=== PATIENT | female | born 1960 | race Caucasian/White ===

== ENCOUNTER 2019-06-10 13:10 | Inpatient (IN) | payer OTHER ==
[2019-06-10 13:37] LABS: BASOPHILS % (AUTO) 0.4 %; EOSINOPHILS % (AUTO) 0.3 %; HGB - HEMOGLOBIN 14.1 g/dL (12.0-16.0); LYMPHOCYTES # (AUTO) 1.5 10^3/uL (1.5-3.5); LYMPHOCYTES % (AUTO) 14.2 %; MEAN CORPUSCULAR HEMOGLOBIN 28.2 pg (27.0-31.0); MEAN CORPUSCULAR HGB CONC 32.7 g/dL (32.0-36.0); MEAN CORPUSCULAR VOLUME 86.2 fL (81.0-99.0); MEAN PLATELET VOLUME 10.7 fL (7.9-10.8); MONOCYTES # (AUTO) 0.6 10^3/uL (0.0-1.0); MONOCYTES % (AUTO) 5.8 %; NEUTROPHILS # (AUTO) 8.5 10^3/uL (1.5-6.6); NEUTROPHILS % (AUTO) 78.9 %; PLT - PLATELET COUNT 213 10^3/uL (130-450); RED CELL DISTRIBUTION WIDTH 13.4 % (12.0-15.0); WHITE BLOOD COUNT 10.7 x10^3/uL (4.8-10.8)
[2019-06-10 13:52] LABS: ALBUMIN 4.6 g/dL (3.2-5.5); ALBUMIN/GLOBULIN RATIO 1.3 (1.0-2.2); BILIRUBIN,TOTAL 0.8 mg/dL (0.2-1.0); CALCIUM 9.8 mg/dL (8.5-10.3); CREATININE 0.9 mg/dL (0.4-1.0); TOTAL PROTEIN 8.1 g/dL (6.7-8.2)
--- NOTE | 2019-06-10 16:26 | ED Physician Documentation ---
PD HPI ABD PAIN - Stated complaint Stated Complaint: ABD PX - Chief complaint Chief Complaint: Abd Pain - History obtained from History obtained from: Patient PD PAST MEDICAL HISTORY - Allergies Allergies/Adverse Reactions: Allergies Allergy/AdvReac Type Severity Reaction Status Date / Time No Known Drug Allergies Allergy Verified 06/10/19 13:12 Results - Vitals Vitals: Vital Signs - 24 hr 06/10/19 13:12 Temperature 36.5 C Heart Rate 63 Respiratory 16 Rate Blood Pressure 145/70 H O2 Saturation 97 Oxygen O2 Source Room air - Labs Labs: Laboratory Tests 06/10/19 06/10/19 13:33 13:33 WBC 10.7 RBC 5.00 Hgb 14.1 Hct 43.1 MCV 86.2 MCH 28.2 MCHC 32.7 RDW 13.4 Plt Count 213 MPV 10.7 Neut # (Auto) 8.5 H Lymph # (Auto) 1.5 [place] # (Auto) 0.6 Eos # (Auto) 0.0 Baso # (Auto) 0.0 Absolute Nucleated RBC 0.00 Nucleated RBC % 0.0 Sodium 135 Potassium 3.6 Chloride 99 L Carbon Dioxide 24 Anion Gap 12.0 BUN 14 Creatinine 0.9 Estimated GFR (MDRD) 64 L Glucose 117 H Calcium 9.8 Total Bilirubin 0.8 AST 21 ALT 23 Alkaline Phosphatase 57 Total Protein 8.1 Albumin 4.6 Globulin 3.5 Albumin/Globulin Ratio 1.3 Lipase 25
[2019-06-10] MEDS ORDERED: LIDOCAINE VISCOUS 2% 15 ML UDC MM STA (16:35)
[2019-06-10] MEDS ORDERED: MAG HYDROX/AL HYDROX/SIMETH 30 ML UDC PO STA (16:35)
--- NOTE | 2019-06-10 16:37 | ED Physician Documentation ---
PD HPI ABD PAIN - Stated complaint Stated Complaint: ABD PX - Chief complaint Chief Complaint: Abd Pain - History obtained from History obtained from: Patient - History of Present Illness Timing - onset: Other (The last couple of months she has had episodic upper abdominal pain that is at times severe usually affecting her at night. She has had 4 episodes in total, the first 1 was in March and the second 1 was in March and the third was in mid April. Each of those episodes lasted about 6 hours and went away. She is had the current episode now going on 48 hours. It epigastric pain that is nonradiating. It is worse after eating. She is nauseous without vomiting. No fevers. She has had a hysterectomy and oophorectomy but no other abdominal surgeries.) Review of Systems Ten Systems: 10 systems reviewed and negative Constitutional: denies: Fever, Chills Nose: denies: Rhinorrhea / runny nose Cardiac: denies: Chest pain / pressure, Palpitations Respiratory: denies: Dyspnea, Cough PD PAST MEDICAL HISTORY - Allergies Allergies/Adverse Reactions: Allergies Allergy/AdvReac Type Severity Reaction Status Date / Time No Known Drug Allergies Allergy Verified 06/10/19 13:12 PD ED PE NORMAL - Vitals Vital signs reviewed: Yes - General General: Alert and oriented X 3, No acute distress - HEENT HEENT: Atraumatic, PERRL, EOMI - Neck Neck: Supple, no meningeal sign, No bony TTP - Cardiac Cardiac: RRR, No murmur - Respiratory Respiratory: No respiratory distress, Clear bilaterally - Abdomen Abdomen: Normal bowel sounds, Soft, Non tender - Back Back: No CVA TTP, No spinal TTP - Derm Derm: Normal color, Warm and dry - Extremities Extremities: No edema, No calf tenderness / cord - Neuro Neuro: Alert and oriented X 3, Normal speech Results - Vitals Vitals: Vital Signs - 24 hr 06/10/19 06/10/19 06/10/19 13:12 16:38 17:27 Temperature 36.5 C Heart Rate 63 72 70 Respiratory 16 16 16 Rate Blood Pressure 145/70 H 135/87 H O2 Saturation 97 100 99 06/10/19 06/10/19 06/10/19 17:31 18:11 19:24 Temperature Heart Rate 72 70 Respiratory 17 18 Rate Blood Pressure 125/71 141/72 H 122/75 O2 Saturation 100 98 06/10/19 06/10/19 06/10/19 20:07 20:11 20:44 Temperature 37.2 C Heart Rate 75 75 73 Respiratory 17 19 16 Rate Blood Pressure 117/74 112/65 O2 Saturation 95 98 97 06/10/19 21:38 Temperature Heart Rate 68 Respiratory 16 Rate Blood Pressure 109/64 O2 Saturation 95 Oxygen O2 Source Room air - EKG (time done) 1638 Rate: Rate (enter#) (66) Rhythm: NSR [place]: Normal Intervals: Normal ID QRS: Normal Ischemia: Normal ST segments Computer interpretation: Agree with computer - Labs Labs: Laboratory Tests 06/10/19 06/10/19 06/10/19 13:33 13:33 13:33 WBC 10.7 RBC 5.00 Hgb 14.1 Hct 43.1 MCV 86.2 MCH 28.2 MCHC 32.7 RDW 13.4 Plt Count 213 MPV 10.7 Neut # (Auto) 8.5 H Lymph # (Auto) 1.5 [place] # (Auto) 0.6 Eos # (Auto) 0.0 Baso # (Auto) 0.0 Absolute Nucleated RBC 0.00 Nucleated RBC % 0.0 Sodium 135 Potassium 3.6 Chloride 99 L Carbon Dioxide 24 Anion Gap 12.0 BUN 14 Creatinine 0.9 Estimated GFR (MDRD) 64 L Glucose 117 H Calcium 9.8 Total Bilirubin 0.8 AST 21 ALT 23 Alkaline Phosphatase 57 Troponin I High Sens < 2.3 L Total Protein 8.1 Albumin 4.6 Globulin 3.5 Albumin/Globulin Ratio 1.3 Lipase 25 Urine Color Urine Clarity Urine pH Ur Specific [place] Urine Protein Urine Glucose (UA) Urine Ketones Urine Occult Blood Urine Nitrite Urine Bilirubin Urine Urobilinogen Ur Leukocyte Esterase Ur Microscopic Review Urine Culture Comments 06/10/19 19:05 WBC RBC Hgb Hct MCV MCH MCHC RDW Plt Count MPV Neut # (Auto) Lymph # (Auto) [place] # (Auto) Eos # (Auto) Baso # (Auto) Absolute Nucleated RBC Nucleated RBC % Sodium Potassium Chloride Carbon Dioxide Anion Gap BUN Creatinine Estimated GFR (MDRD) Glucose Calcium Total Bilirubin AST ALT Alkaline Phosphatase Troponin I High Sens Total Protein Albumin Globulin Albumin/Globulin Ratio Lipase Urine Color YELLOW Urine Clarity CLEAR Urine pH 6.0 Ur Specific [place] >=1.030 H Urine Protein TRACE Urine Glucose (UA) NEGATIVE Urine Ketones >=80 H Urine Occult Blood TRACE-INTA Urine Nitrite NEGATIVE Urine Bilirubin NEGATIVE Urine Urobilinogen 0.2 (NORMAL) Ur Leukocyte Esterase NEGATIVE Ur Microscopic Review NOT INDICATED Urine Culture Comments NOT INDICATED - Rads (name of study) RUQ sono Radiology: EMP read contemporaneously (impacted stone, thick wall cw cholecystit is, no evidence of obstruciton or CBD dilation) PD MEDICAL DECISION MAKING - ED course ED course: 58yo woman not too TTP but hx c/w worsening GB sx and sono c/w obstruction, no sono or lab evidence of obstruciton. Spoke with Dr Arriola for admit, (not sure of timing, as EMR was down). Zosyn given. Departure - Departure Disposition: ED Place in Observation Clinical Impression: Cholecystitis Condition: Fair
[2019-06-10] MEDS ORDERED: HYDROmorphone 1 MG/ML CARPUJECT IVP STA (17:16)
[2019-06-10] MEDS ORDERED: KETOROLAC 30 MG/ML VIAL IVP STA (18:28)
--- NOTE | 2019-06-10 19:05 | Ultrasound Report ---
Reason: epigastric pain Procedure Date: 06/10/2019 Accession Number: [id number] / [id number] Procedure: US - Abdomen Limited CPT Code: Final Report FULL RESULT: EXAM: ABDOMEN ULTRASOUND LIMITED, RUQ EXAM DATE: 06/10/2019 06:29 PM. CLINICAL HISTORY: Epigastric pain. COMPARISON: None. TECHNIQUE: Real-time scanning was performed with static images obtained. FINDINGS: Liver: The liver parenchyma is echogenic. There is a relatively hypoechoic area in the liver near the gallbladder fossa consistent with focal fatty sparing. 13.9 cm. Main portal vein flow: Hepatopetal. Gallbladder: There are multiple gallstones in the gallbladder. The gallbladder wall appears thickened up to 6 mm. Positive ultrasound Vigil's sign. Biliary System: CBD measures 4 mm. No intrahepatic or extrahepatic ductal dilatation. Other: No right upper quadrant free fluid. Right kidney measures 8.9 cm in length without hydronephrosis. IMPRESSION: 1. Gallstones with ultrasound features of acute cholecystitis including a positive ultrasound Vigil's sign and gallbladder wall thickening. 2. No biliary dilatation. Common bile duct measures 4 mm in diameter. 3. Steatosis of the liver with focal fatty sparing. RADIA
[2019-06-10] MEDS ORDERED: PIPERACILLIN/TAZOBACTAM 3.375 GM in SODIUM CHLORIDE 0.9% MINIBAG 100 ML IV STA (19:09)
[2019-06-10 19:21] LABS: BILIRUBIN,URINE NEGATIVE (NEGATIVE); GLUCOSE, URINE (UA) NEGATIVE (NEGATIVE); KETONES,URINE (UA) >=80 mg/dL (NEGATIVE); LEUKOCYTE ESTERASE, URINE NEGATIVE (NEGATIVE); NITRITE,URINE NEGATIVE (NEGATIVE); OCCULT BLOOD,URINE TRACE-INTA (NEGATIVE); PROTEIN,URINE TRACE mg/dL (NEGATIVE); UROBILINOGEN,URINE 0.2 (NORMAL) E.U./dL (NORMAL)
[2019-06-10 19:25] LABS: CLARITY,URINE CLEAR (CLEAR)
[2019-06-10] MEDS ORDERED: ACETAMINOPHEN 1,000 MG/100 ML 100 ML IV STA (20:29)
[2019-06-10] MEDS: DEXTROSE 5%-LACTATED RINGERS 1,000 ML IV SCH (20:55)
[2019-06-10] MEDS ORDERED: ONDANSETRON 4 MG/2 ML VIAL IVP PRN (21:59)
[2019-06-10] MEDS ORDERED: ACETAMINOPHEN 1,000 MG/100 ML 100 ML IV PRN (22:06)
[2019-06-11] MEDS: PIPERACILLIN/TAZOBACTAM 3.375 GM in SODIUM CHLORIDE 0.9% MINIBAG 100 ML IV SCH ×4 (01:16→18:44)
[2019-06-11] MEDS: SODIUM CHLORIDE FLUSH 0.9% 10 ML SYRINGE IVP SCH ×3 (01:16→17:08)
[2019-06-11] MEDS: DEXTROSE 5%-0.45% NACL 1,000 ML IV SCH ×2 (01:16→07:51)
[2019-06-11] MEDS: DEXTROSE 5%-LACTATED RINGERS 1,000 ML IV SCH (07:52)
[2019-06-11] MEDS ORDERED: LACTATED RINGERS 1,000 ML IV SCH ×2 (10:00→15:51)
--- NOTE | 2019-06-11 12:41 | ANESTHESIA ---
Pre-Anesthesia VS, & Labs - Diagnosis cholecystitis - Procedure Laparoscopic cholecystectomy Vital Signs: Temp Pulse Resp BP Pulse Ox 36.8 C 66 16 119/62 100 06/11/19 07:32 06/11/19 07:32 06/11/19 07:32 06/11/19 07:32 06/11/19 07:32 Height 5 ft Weight (kg) 83 kg Body Mass Index 35.7 - NPO >8 hours - Is Patient ?: No - Lab Results Current Lab Results: Laboratory Tests 06/10/19 13:33: Troponin I High Sens < 2.3 L 06/10/19 13:33: Sodium 135, Potassium 3.6, Chloride 99 L, Carbon Dioxide 24, Anion Gap 12.0, BUN 14, Creatinine 0.9, Estimated GFR (MDRD) 64 L, Glucose 117 H , Calcium 9.8, Total Bilirubin 0.8, AST 21, ALT 23, Alkaline Phosphatase 57, Total Protein 8.1, Albumin 4.6, Globulin 3.5, Albumin/Globulin Ratio 1.3, Lipase 25 06/10/19 13:33: WBC 10.7, RBC 5.00, Hgb 14.1, Hct 43.1, MCV 86.2, MCH 28.2, MCHC 32.7, RDW 13.4, Plt Count 213, MPV 10.7, Neut # (Auto) 8.5 H, Lymph # (Auto) 1.5, [place] # (Auto) 0.6, Eos # (Auto) 0.0, Baso # (Auto) 0.0, Absolute Nucleated RBC 0.00, Nucleated RBC % 0.0 Fish Bones: 06/10/19 13:33 06/10/19 13:33 Home Medications and Allergies Active Medications Hydromorphone HCl (Dilaudid Inj Syringe) 0.5 mg IVP Q30M PRN PRN Reason: Breakthrough Pain Acetaminophen (Ofirmev) 100 mls @ 400 mls/hr IV Q6HR PRN PRN Reason: PAIN Last Infusion: 06/11/19 08:10 Dose: Infused Piperacillin Sod/Tazobactam (Sod 3.375 gm/ Sodium Chloride) 100 mls @ 200 mls/hr IV Q6H MICAH Last Infusion: 06/11/19 09:22 Dose: Infused Lactated Ringer's (Lr) 1,000 mls @ 100 mls/hr IV .Q10H [facility] Last Admin: 06/11/19 10:59 Dose: 100 mls/hr Ondansetron HCl (Zofran Inj) 4 mg IVP Q6HR PRN PRN Reason: Nausea / Vomiting Sodium Chloride (Normal Saline Flush 0.9%) 10 ml IVP PRN PRN PRN Reason: NEEDED PER PROVIDER ORDERS Sodium Chloride (Normal Saline Flush 0.9%) 10 ml IVP 0100,0900,1700 [facility] Last Admin: 06/11/19 10:55 Dose: Not Given Allergies/Adverse Reactions: Allergies Allergy/AdvReac Type Severity Reaction Status Date / Time No Known Drug Allergies Allergy Verified 06/10/19 13:12 Anes History & Medical History - Anesthetic History Anesthesia Complications: reports: No previous complications - Medical History Cardiovascular: reports: None Pulmonary: reports: None Gastrointestinal: reports: GERD, Cholelithiasis Urinary: reports: None Neuro: reports: None Musculoskeletal: reports: None Endocrine/Autoimmune: reports: None Blood Disorders: reports: None Skin: reports: Eczema Smoking Status: Never smoker Other Past Medical History: fibroids, ovarian cysts - Surgical History Eyes Ears Nose Throat (EENT): Other Gynecologic: Hysterectomy Exam General: Alert Dental: WNL Mouth Opening: Greater than 4 Fingerbreadths Mallampati classification: I Thyromental Distance: greater than 6 cm Respiratory: Lungs clear Cardiovascular: Regular rate, Normal S1, Normal S2 Plan Anesthesia Type: General Consent for Procedure(s) Verified and Reviewed: Yes Code Status: Attempt Resuscitation ASA classification: 2-Mild systemic disease Is this case an emergency?: Yes
[2019-06-11] MEDS ORDERED: PROPOFOL 200 MG/20 ML VIAL IVP ONE (13:12)
[2019-06-11] MEDS ORDERED: DEXAMETHASONE 4 MG/ML VIAL IVP ONE (13:12)
[2019-06-11] MEDS ORDERED: KETOROLAC 30 MG/ML VIAL IVP ONE (13:12)
[2019-06-11] MEDS ORDERED: ROCURONIUM 50 MG/5 ML VIAL IVP ONE (13:12)
[2019-06-11] MEDS ORDERED: LIDOCAINE-MPF 2% 5 ML VIAL IM ONE (13:12)
[2019-06-11] MEDS ORDERED: fentaNYL 100 MCG/2 ML VIAL IVP ONE (13:12)
[2019-06-11] MEDS ORDERED: MIDAZOLAM 2 MG/2 ML VIAL IVP ONE (13:12)
[2019-06-11] MEDS ORDERED: ACETAMINOPHEN 1,000 MG/100 ML 100 ML IV ONE (13:12)
[2019-06-11] MEDS ORDERED: ONDANSETRON 4 MG/2 ML VIAL IVP ONE (13:12)
[2019-06-11] MEDS ORDERED: LACTATED RINGERS 1,000 ML IV ONE ×3 (13:12→15:59)
[2019-06-11] MEDS ORDERED: LIDOCAINE 1%-EPI 1:100000 30 ML MDV SUBQ ONE ×2 (13:43→15:00)
[2019-06-11] MEDS ORDERED: fentaNYL 100 MCG/2 ML VIAL ONE (15:38)
[2019-06-11] MEDS ORDERED: HYDROmorphone 0.5 MG/0.5 ML SYRINGE ONE (15:39)
[2019-06-11] MEDS: HYDROmorphone 0.5 MG/0.5 ML SYRINGE IVP PRN ×5 (15:40→21:46)
--- NOTE | 2019-06-11 15:40 | CONSULTATION NOTE ---
Referring Provider Name of Referring Provider:: Dr. Rivera Consult Date: 06/11/19 Chief Complaint - Chief Complaint Chief Complaint: abd pain History of Present Illness - Admitted From Admitted From:: ER - History Obtained From Records Reviewed: yes History obtained from: pt, Exam Limitations: none - History of Present Illness HPI Comment/Other: 58 yo female with 72 hour hx of severe constant steady nonradiating epigastric pain, N/V without fever/chills, jaundice, change in bowel habits, melena, hematochezia. She reports 3-4 milder simliar episodes over the past several months lasting 6-12 hours and associated with low grade fever. She reports a 30# wt loss over the past 6 months since starting a new diet. FH gallbladder disease in mother. Hx frequent heartburn relieved with antacids, no dysphagia, no hx PUD, current sx unimproved with antacids. No hx food intolerance; neg FH GI tumors. Evaluation in the ER included nl CBC, LFTs, lipase and abd US notable for multiple stones in gallbladder, thickened gallbladder wall, nl bile ducts. Surgical consultation was requested. She was admitted last night and started on Zosyn, kept NPO, with analgesics. Pain persists today but is improved. 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 Social History Notes: [facility] resident of [facility]; [place] - Substance History Use: Uses substance without health or social issues: Alcohol (one to two drinks/month) - POLST Patient has POLST: No Meds/Allgy - Allergies Allergies/Adverse Reactions: Allergies Allergy/AdvReac Type Severity Reaction Status Date / Time No Known Drug Allergies Allergy Verified 06/10/19 13:12 Review of Systems - Constitutional Constitutional: reports: Fever (low grade past few weeks), Weight loss - Gastrointestinal Gastrointestinal: reports: Abdominal pain, Nausea, Vomiting, Reflux/heartburn. denies: Constipation, Diarrhea, Change in bowel habits, Rectal bleeding, Black stools, Bloody stools, [place] blood emesis, Coffee grounds emesis, Bloating, Poor appetite - All Other Systems All Other Systems: reports: Reviewed and negative (or covered in HPI/PMH) Exam - Vital Signs Reviewed Vital Signs: Yes Vital Signs: Vital Signs x48h Temp Pulse Resp BP Pulse Ox 06/11/19 15:20 37.1 C 78 20 107/62 100 - Physical Exam General Appearance: positive: Alert, Mild distress Eyes Bilateral: positive: Normal inspection, PERRL, No lid inflammation, Conjunctivae nml, No scleral icterus ENT: positive: ENT inspection nml, Pharynx nml, No signs of dehydration Neck: positive: Nml inspection, No JVD. negative: Lymphadenopathy (R), Lymphadenopathy (L) Respiratory: positive: Chest non-tender, No respiratory distress, Breath sounds nml Cardiovascular: positive: Regular rate & rhythm, No murmur, No gallop Abdomen: positive: Tenderness (mild midepigastric and RUQ). negative: Guarding, Rebound, Hepatomegaly, Splenomegaly, Mass Back: positive: CVA tenderness (R) Skin: positive: No rash, Warm, Dry. negative: Cyanosis Extremities: positive: No pedal edema. negative: Calf tenderness Neurologic/Psychiatric: positive: Oriented x3 Conclusion and Plan - Lab Results Laboratory Results 06/10/19 19:05: Urine Color YELLOW, Urine Clarity CLEAR, Urine pH 6.0, Ur Specific [place] >=1.030 H, Urine Protein TRACE, Urine Glucose (UA) NEGATIVE, Urine Ketones >=80 H, Urine Occult Blood TRACE-INTA, Urine Nitrite NEGATIVE, Urine Bilirubin NEGATIVE, Urine Urobilinogen 0.2 (NORMAL), Ur Leukocyte Esterase NEGATIVE, Ur Microscopic Review NOT INDICATED, Urine Culture Comments NOT INDICATED 06/10/19 13:33: Troponin I High Sens < 2.3 L 06/10/19 13:33: Sodium 135, Potassium 3.6, Chloride 99 L, Carbon Dioxide 24, Anion Gap 12.0, BUN 14, Creatinine 0.9, Estimated GFR (MDRD) 64 L, Glucose 117 H, Calcium 9.8, Total Bilirubin 0.8, AST 21, ALT 23, Alkaline Phosphatase 57, Total Protein 8.1, Albumin 4.6, Globulin 3.5, Albumin/Globulin Ratio 1.3, Lipase 25 06/10/19 13:33: WBC 10.7, RBC 5.00, Hgb 14.1, Hct 43.1, MCV 86.2, MCH 28.2, MCHC 32.7, RDW 13.4, Plt Count 213, MPV 10.7, Neut # (Auto) 8.5 H, Lymph # (Auto) 1.5, [place] # (Auto) 0.6, Eos # (Auto) 0.0, Baso # (Auto) 0.0, Absolute Nucleated RBC 0.00, Nucleated RBC % 0.0 - Diagnostic Imaging Results Diagnostic Imaging Results: positive: Final report reviewed Diagnostic Imaging Results Comments: see HPI - Diagnosis Diagnosis: Acute calculous cholecystitis - Plan Plan: Laparoscopic cholecystectomy. PAR conf with pt and and risks of bleeding, bile duct injury, infection discussed in detail and consent obtained. The procedure will be performed later today as soon as it can be arranged.
[2019-06-11] MEDS ORDERED: SODIUM CHLORIDE FLUSH 0.9% 10 ML SYRINGE IVP PRN (15:45)
[2019-06-11] MEDS ORDERED: SODIUM CHLORIDE FLUSH 0.9% 10 ML SYRINGE IVP SCH (17:00)
[2019-06-11] MEDS: KETOROLAC 30 MG/ML VIAL IVP PRN ×2 (17:08→22:55)
[2019-06-11] MEDS: LACTATED RINGERS 1,000 ML IV SCH (18:44)
[2019-06-11] MEDS: ACETAMINOPHEN 325 MG TABLET PO PRN (18:57)
[2019-06-12] MEDS: HYDROmorphone 0.5 MG/0.5 ML SYRINGE IVP PRN ×5 (00:07→22:56)
--- NOTE | 2019-06-12 00:27 | OPERATIVE REPORT ---
DATE OF SERVICE: 06/11/2019 Physician: Jakob Gauthier MD PREOPERATIVE DIAGNOSIS: Acute calculous cholecystitis. POSTOPERATIVE DIAGNOSIS: Acute calculous cholecystitis. PROCEDURE: Laparoscopic cholecystectomy. SURGEON: Jakob Gauthier MD ANESTHESIA TYPE/PROVIDER: General endotracheal by Peggy Barajas CRNA. ESTIMATED BLOOD LOSS: 50 mL COMPLICATIONS: None. DRAINS: A 9-English Dejuan drain in the subhepatic space. FINDINGS: Laparoscopy revealed extensive pericholecystic adhesions. The gallbladder that was acutel y inflamed with a markedly thickened, tense, distended gallbladder wall with marked inflammation in t his region of the cystic triangle. Following resection, the gallbladder was seen to contain multiple black round stones measuring from 5 up to 25 mm in size. Cystic duct was of normal caliber. The co mmon duct was not visualized. Visualized portions of the liver, stomach, and duodenum were within no rmal limits. INDICATIONS: The patient is a 58-year-old woman with approximately 72-hour history of epigastric emma n. Evaluation included ultrasonography showing multiple stones in the gallbladder, thickened gallbla dder wall, normal bile ducts. CBC and liver function tests and lipase were normal. She was felt to be suffering from acute calculous cholecystitis and advised to undergo laparoscopic cholecystectomy f or definitive surgical treatment. TECHNIQUE: After informed consent, the patient was taken to the operating room where she was placed under general endotracheal anesthesia. Preoperative preparation included application of sequential c sin compression boots and preoperative therapeutic administration of Zosyn. Her abdomen was prepared with ChloraPrep solution and draped in the usual sterile fashion. A transverse curvilinear incision was made along the inferior edge of the umbilicus and carried down through the layers of the abdomin al wall until the peritoneum was identified and entered sharply. A 10 mm John cannula was inserted . Pneumoperitoneum achieved with carbon dioxide. A 10 mm 30-degree [place] telescope was inserted. Laparoscopy was carried out with findings noted above. Three additional 5 mm ports were placed in t he right upper quadrant. Pericholecystic adhesions were lysed with electrocautery and gentle blunt d issection. The gallbladder was unable to be grasped initially and was aspirated of approximately 40 mL of dark green watery bile, which then allowed the gallbladder to be grasped and retracted in a cep halad and lateral direction, exposing the cystic triangle of [place], which was carefully dissected usi ng hook electrode and electrocautery. The cystic duct and artery were each isolated adjacent to the gallbladder, doubly clipped distally with regard to the cystic duct, doubly clipped proximally with r egard to the cystic artery, singly clipped distally with respect to the artery and singly clipped pro ximally with respect to the bile duct and then divided between. The gallbladder was dissected from t he liver bed with difficulty using electrocautery for dissection and hemostasis due to the marked inf lammation. Eventually, the gallbladder was able to be detached, placed in an organ retrieval bag, ex tracted through the umbilical port site, which had to be enlarged to facilitate removal. The tissue was then sent for pathologic evaluation. After careful hemostasis was achieved, the wound was copiously irrigated with saline solution. Becau se of the difficulty of the dissection and the marked inflammation, a 9-English round Dejuan drain was placed in the subhepatic space and made to exit the most lateral right upper quadrant port site. It was connected to bulb suction and secured with 3-0 nylon sutures to the skin. Instruments and cannul as were removed under direct vision. Pneumoperitoneum was allowed to escape and the incisions were c losed in layers using continuous 0 Vicryl, reapproximated the midline fascia at the umbilicus, follow ed by 3-0 Vicryl reapproximating subcutaneous tissue at the umbilicus, followed by 4-0 Monocryl subcu ticular skin closure at all the remaining port sites and Dermabond for all the sites except for the d rain site. Anesthesia was terminated. The patient was transferred to the recovery room in satisfact ory condition. Final counts were correct x2 and a single Dejuan drain was used. TD: 06/11/2019 16:03
[2019-06-12] MEDS: LACTATED RINGERS 1,000 ML IV SCH ×3 (01:11→22:56)
[2019-06-12] MEDS: PIPERACILLIN/TAZOBACTAM 3.375 GM in SODIUM CHLORIDE 0.9% MINIBAG 100 ML IV SCH ×4 (01:12→19:01)
[2019-06-12] MEDS: SODIUM CHLORIDE FLUSH 0.9% 10 ML SYRINGE IVP SCH ×3 (01:13→15:47)
[2019-06-12] MEDS: ACETAMINOPHEN 325 MG TABLET PO PRN ×3 (01:13→22:05)
[2019-06-12] MEDS: KETOROLAC 30 MG/ML VIAL IVP PRN ×3 (04:52→17:56)
[2019-06-12 05:26] LABS: BASOPHILS % (AUTO) 0.2 %; EOSINOPHILS % (AUTO) 0.1 %; HGB - HEMOGLOBIN 12.8 g/dL (12.0-16.0); LYMPHOCYTES # (AUTO) 1.2 10^3/uL (1.5-3.5); LYMPHOCYTES % (AUTO) 9.2 %; MEAN CORPUSCULAR HEMOGLOBIN 28.7 pg (27.0-31.0); MEAN CORPUSCULAR HGB CONC 31.4 g/dL (32.0-36.0); MEAN CORPUSCULAR VOLUME 91.3 fL (81.0-99.0); MEAN PLATELET VOLUME 11.2 fL (7.9-10.8); MONOCYTES # (AUTO) 1.1 10^3/uL (0.0-1.0); NEUTROPHILS # (AUTO) 10.9 10^3/uL (1.5-6.6); PLT - PLATELET COUNT 205 10^3/uL (130-450); RED BLOOD COUNT 4.46 10^6/uL (4.20-5.40); RED CELL DISTRIBUTION WIDTH 13.8 % (12.0-15.0); WHITE BLOOD COUNT 13.2 x10^3/uL (4.8-10.8)
[2019-06-12 05:51] LABS: ALBUMIN 3.5 g/dL (3.2-5.5); ALBUMIN/GLOBULIN RATIO 1.1 (1.0-2.2); CALCIUM 8.6 mg/dL (8.5-10.3); CREATININE 0.8 mg/dL (0.4-1.0); TOTAL PROTEIN 6.8 g/dL (6.7-8.2)
[2019-06-12] MEDS: ENOXAPARIN 40 MG/0.4 ML SYRINGE SUBQ SCH (08:06)
[2019-06-12] MEDS: SODIUM CHLORIDE FLUSH 0.9% 10 ML SYRINGE IVP PRN ×3 (09:57→14:35)
--- NOTE | 2019-06-12 13:12 | PROVIDER PROGRESS NOTE ---
Subjective - General Admit Date: 06/10/19 Procedure Date: 06/11/19 Post Op Days: 1 Procedure Performed: Laparoscopic cholecystectomy with drain placement - Review of Systems Wound/Incisions: positive: Drainage (Drainage around the drain site only.) Drain Type: 15 F closed suction Drain Output Description: serosanguinous, bile tinged General: positive: Weakness, Malaise HEENT: positive: No symptoms Pulmonary: positive: No symptoms Cardiovascular: positive: No symptoms Gastrointestinal: positive: Abdominal pain Genitourinary: positive: No symptoms Musculoskeletal: positive: No symptoms Skin: positive: No symptoms Psychiatric: positive: No symptoms All Other Systems: positive: Reviewed and negative (or covered in HPI/PMH) Objective - Patient Data Vital Signs: Vital Signs x48h Temp Pulse Resp BP Pulse Ox 06/12/19 08:26 36.9 C 61 16 124/73 94 Weight: Weight 06/10/19 06/11/19 06/12/19 23:59 23:59 23:59 Weight (kg) 84.5 kg 83 kg Intake & Output: Intake and Output Totals x24h 06/10/19 06/11/19 06/12/19 23:59 23:59 23:59 Intake Total 200 3404.757 1886.667 Output Total 160 740 Balance 200 3244.757 1146.667 - Lab Results Lab Results: 06/12/19 04:50 06/12/19 04:50 Other Lab Results: Lab Results x24hrs 06/12/19 06/12/19 Range/Units 04:50 04:50 WBC 13.2 H (4.8-10.8) x10^3/uL RBC 4.46 (4.20-5.40) 10^6/uL Hgb 12.8 (12.0-16.0) g/dL Hct 40.7 (37.0-47.0) % MCV 91.3 (81.0-99.0) fL MCH 28.7 (27.0-31.0) pg MCHC 31.4 L (32.0-36.0) g/dL RDW 13.8 (12.0-15.0) % Plt Count 205 (130-450) 10^3/uL MPV 11.2 H (7.9-10.8) fL Neut # (Auto) 10.9 H (1.5-6.6) 10^3/uL Lymph # (Auto) 1.2 L (1.5-3.5) 10^3/uL [place] # (Auto) 1.1 H (0.0-1.0) 10^3/uL Eos # (Auto) 0.0 (0.0-0.7) 10^3/uL Baso # (Auto) 0.0 (0.0-0.1) 10^3/uL Absolute Nucleated RBC 0.00 x10^3/uL Nucleated RBC % 0.0 /100WBC Sodium 138 (135-145) mmol/L Potassium 4.3 (3.5-5.0) mmol/L Chloride 106 (101-111) mmol/L Carbon Dioxide 23 (21-32) mmol/L Anion Gap 9.0 (6-13) BUN 13 (6-20) mg/dL Creatinine 0.8 (0.4-1.0) mg/dL Estimated GFR (MDRD) 74 L (>89) Glucose 111 H (70-100) mg/dL Calcium 8.6 (8.5-10.3) mg/dL Total Bilirubin 1.0 (0.2-1.0) mg/dL AST 62 H (10-42) IU/L ALT 64 H (10-60) IU/L Alkaline Phosphatase 46 (42-121) IU/L Total Protein 6.8 (6.7-8.2) g/dL Albumin 3.5 (3.2-5.5) g/dL Globulin 3.3 (2.1-4.2) g/dL Albumin/Globulin Ratio 1.1 (1.0-2.2) Lipase 54 H (22-51) U/L - Current Medications Current Medications: Current Medications Generic Name Dose Route Start Last Admin Trade Name Freq PRN Reason Stop Dose Admin Acetaminophen 650 mg 06/11/19 15:45 06/12/19 01:13 Tylenol PO 650 mg Q6H PRN Administration PAIN Enoxaparin Sodium 40 mg 06/12/19 09:00 06/12/19 08:06 Lovenox SUBQ 40 mg DAILY MICAH Administration Hydromorphone HCl 0.5 mg 06/10/19 22:05 06/12/19 09:56 Dilaudid Inj Syringe IVP 0.5 mg Q30M PRN Administration Breakthrough Pain Piperacillin Sod/Tazobactam 100 mls @ 200 mls/hr 06/11/19 01:00 06/12/19 13:05 Sod 3.375 gm/ Sodium Chloride IV Infused Q6H MICAH Infusion Lactated Ringer's 1,000 mls @ 100 mls/hr 06/11/19 18:06 06/12/19 12:13 Lr IV 100 mls/hr .Q10H MICAH Administration Ketorolac Tromethamine 30 mg 06/11/19 15:45 06/12/19 12:11 Toradol Inj (30mg) IVP 06/16/19 15:44 30 mg Q6H PRN Administration PAIN Sodium Chloride 10 ml 06/10/19 21:59 06/12/19 12:12 Normal Saline Flush 0.9% IVP 10 ml PRN PRN Administration NEEDED PER PROVIDER ORDERS Sodium Chloride 10 ml 06/11/19 01:00 06/12/19 08:01 Normal Saline Flush 0.9% IVP Not Given 0100,0900,1700 REPLACED BY [facility] - Physical Exam Wound/Incisions: positive: Healing well, Drainage (At the drain site and around it. The dressing as well as an overlying towel is soaked.) General Appearance: positive: Mild distress Eyes Bilateral: positive: Normal inspection, PERRL, No scleral icterus ENT: positive: ENT inspection nml Neck: positive: Nml inspection Respiratory: positive: Chest non-tender, No respiratory distress, Breath sounds nml Cardiovascular: positive: Regular rate & rhythm Abdomen: positive: Other (Appropriately tender to palpation. Hypoactive bowel sounds) ABX Reporting Has patient been on IV antibiotics over the past 48 hours?: Yes Impression/Plan - Problem List Problem List: Acute on chronic cholecystitis and cholelithiasis staus post lap sherlyn yesterday. The drain is not functioning and is keeping the dressing saturated. I attempted to manipulate it including cutting the stitch and stripping the drain with no improvement. I subsequently removed the drain. Pain is a significant issue today. The patient has been so uncomfortable she is taking very minimal po and has been out of bed only to the bathroom in her room. I will add oxycodone. She MUST walk in the halls today. We will start miralax as well. Recheck labs in the AM. Continue Adriane.
[2019-06-12] MEDS: oxyCODONE 5 MG TABLET PO PRN ×4 (13:15→22:05)
[2019-06-12] MEDS ORDERED: polyethylene glycoL 3350 17 GM PACKET PO PRN (13:17)
[2019-06-13] MEDS: KETOROLAC 30 MG/ML VIAL IVP PRN ×2 (00:02→06:52)
[2019-06-13] MEDS: PIPERACILLIN/TAZOBACTAM 3.375 GM in SODIUM CHLORIDE 0.9% MINIBAG 100 ML IV SCH ×3 (01:15→14:39)
[2019-06-13] MEDS: oxyCODONE 5 MG TABLET PO PRN ×5 (01:16→15:52)
[2019-06-13] MEDS: SODIUM CHLORIDE FLUSH 0.9% 10 ML SYRINGE IVP SCH ×2 (02:03→08:12)
[2019-06-13 05:01] LABS: BASOPHILS % (AUTO) 0.4 %; EOSINOPHILS # (AUTO) 0.1 10^3/uL (0.0-0.7); HGB - HEMOGLOBIN 11.7 g/dL (12.0-16.0); LYMPHOCYTES # (AUTO) 1.8 10^3/uL (1.5-3.5); LYMPHOCYTES % (AUTO) 19.7 %; MEAN CORPUSCULAR HGB CONC 32.1 g/dL (32.0-36.0); MEAN CORPUSCULAR VOLUME 90.6 fL (81.0-99.0); MEAN PLATELET VOLUME 10.5 fL (7.9-10.8); MONOCYTES # (AUTO) 0.9 10^3/uL (0.0-1.0); MONOCYTES % (AUTO) 10.1 %; NEUTROPHILS # (AUTO) 6.3 10^3/uL (1.5-6.6); NEUTROPHILS % (AUTO) 68.4 %; PLT - PLATELET COUNT 180 10^3/uL (130-450); RED BLOOD COUNT 4.03 10^6/uL (4.20-5.40); RED CELL DISTRIBUTION WIDTH 14.1 % (12.0-15.0); WHITE BLOOD COUNT 9.2 x10^3/uL (4.8-10.8)
[2019-06-13] MEDS: ACETAMINOPHEN 325 MG TABLET PO PRN ×2 (05:01→13:37)
[2019-06-13 05:25] LABS: ALBUMIN 3.2 g/dL (3.2-5.5); CALCIUM 8.5 mg/dL (8.5-10.3); CREATININE 0.8 mg/dL (0.4-1.0); TOTAL PROTEIN 6.5 g/dL (6.7-8.2)
[2019-06-13] MEDS: SODIUM CHLORIDE FLUSH 0.9% 10 ML SYRINGE IVP PRN (06:53)
[2019-06-13] MEDS: ENOXAPARIN 40 MG/0.4 ML SYRINGE SUBQ SCH (08:32)
[2019-06-13] MEDS: LACTATED RINGERS 1,000 ML IV SCH (09:49)
[2019-06-13] MEDS: HYDROmorphone 0.5 MG/0.5 ML SYRINGE IVP PRN (10:00)
--- NOTE | 2019-06-13 13:56 | Discharge Plan ---
Discharge Plan Problem Reviewed?: Yes Disposition: Home, Self Care Condition: Good Prescriptions: oxyCODONE [Roxicodone] 5 mg PO Q3HR PRN #10 tablet PRN Reason: Pain Diet: Regular Activity Restrictions: Do not lift more than 10 pounds for 1 month Shower Restrictions: No Driving Restrictions: Yes (do not drive while using narcotic pain medications) Weight Bearing: Full Weight Plan of Treatment: Discharge to home in the care of family Follow up with Dr. Gauthier in 2 weeks. Assessment: Much improved after laparoscopic cholecystectomy No Smoking: If you smoke, Please STOP! Call for help. Follow-up with: Jakob Gauthier MD [Provider Admit Priv/Credential] -
--- NOTE | 2019-06-13 14:01 | DISCHARGE SUMMARY ---
"Discharge Summary Admit Date: 06/10/19 Discharge Date: 06/13/19 Discharging Provider: Flako Code Status: Attempt Resuscitation Condition at Discharge: Good Discharge Disposition: 01 Home, Self Care - DIAGNOSES Admission Diagnoses: Acute cholecystitis Discharge Diagnoses with Status of Each Condition: Acute cholecystitis status post laparoscopic cholecystectomy - improved - HPI History of Present Illness: 58 yo female with 72 hour hx of severe constant steady nonradiating epigastric pain, N/V without fever/chills, jaundice, change in bowel habits, melena, hematochezia. She reports 3-4 milder simliar episodes over the past several months lasting 6-12 hours and associated with low grade fever. She reports a 30# wt loss over the past 6 months since starting a new diet. FH gallbladder disease in mother. Hx frequent heartburn relieved with antacids, no dysphagia, no hx PUD, current sx unimproved with antacids. No hx food intolerance; neg FH GI tumors. Evaluation in the ER included nl CBC, LFTs, lipase and abd US notable for multiple stones in gallbladder, thickened gallbladder wall, nl bile ducts. Surgical consultation was requested. She was admitted last night and started on Zosyn, kept NPO, with analgesics. Pain persists today but is improved. - CONSULTS | PROCEDURES Consultations: None Procedures: Laparoscopic cholecystectomy - HOSPITAL COURSE Hospital Course: The patient was admitted overnight and started on antibiotic therapy and pain control medications. On the following day, she was taken to the operating room for a difficult but otherwise uneventful laparoscopic cholecystectomy. She was returned to the med/surg floor for convalescence and supportive care. On the first post operative day, pain and minimal po intake were significant issues. Overnight, those issues have improved significantly. The patient is walking the halls unassisted and tolerating a regular diet without nausea or other difficulty - ALLERGIES Allergies/Adverse Reactions: Allergies Allergy/AdvReac Type Severity Reaction Status Date / Time No Known Drug Allergies Allergy Verified 06/10/19 13:12 - MEDICATIONS Home Medications: Ambulatory Orders Medication Instructions Recorded Confirmed Acetaminophen [Tylenol] 650 mg PO Q6H PRN tablet 06/13/19 oxyCODONE [Roxicodone] 5 mg PO Q3HR PRN #10 tablet 06/13/19 polyethylene glycoL 3350 [Miralax] 17 gm PO DAILY PRN packet 06/13/19 - PHYSICAL EXAM AT DISCHARGE General Appearance: positive: No acute distress Eyes Bilateral: positive: PERRL, EOMI ENT: positive: ENT inspection nml, Pharynx nml, No signs of dehydration Neck: positive: Nml inspection, Thyroid nml, No JVD Respiratory: positive: Chest non-tender, No respiratory distress, Breath sounds nml Cardiovascular: positive: Regular rate & rhythm Peripheral Pulses: positive: 1+ Abdomen: positive: Other (Appropriately tender to palpation with active bowel sounds. Wound, including drain site, are clean and dry) Back: positive: Nml inspection Skin: positive: Color nml Extremities: positive: Non-tender - LABS Result Diagrams: 06/13/19 04:30 06/13/19 04:30 - QUALITY (Female Hip Fx Only) Was patient sent home on osteoporosis medication?: No - FOLLOW UP Follow Up: Dr. Gauthier in 2 weeks - TIME SPENT Time Spent in Discharge (Minutes): 25"
[2019-06-13 16:22] VITALS: BP 143/90
== END 2019-06-13 04:15 | disposition home or self-care (01) | DRG 419 ==
LOC: ED 13:10 → MS2 22:30 → UNDOADMIN 22:30 → MS2 06-11 00:20 → UNDOADMIN 06-11 00:20 → UNDODISIN 06-13 04:15
PROVIDERS: ADMIT Surgery; ATTEND Surgery
PROC: 0FT44ZZ Resection of Gallbladder, Percutaneous Endoscopic Approach (ICD-10-PCS; principal; 2019-06-11 13:00)
DX: K80.00 Calculus of gallbladder with acute cholecystitis without obstruction (principal); G89.18 Other acute postprocedural pain
CPT/HCPCS: 36415; 76705; 80053; 81003; 83690; 84484; 85025; 93005; 96365; 96367; 96375; 99284; 99285; A9270; J0131; J1170; J1650; J7120; 81001; 87086

== ENCOUNTER 2019-06-16 00:58 | Outpatient (CLI) | payer OTHER | END 2019-06-16 00:59 | disposition critical access hospital (66) | LOC: EMS 00:58 | PROVIDERS: ATTEND Surgery | DX: R10.30 Lower abdominal pain, unspecified (principal); M54.5 Low back pain; R11.0 Nausea | CPT/HCPCS: A0425; A0427 ==

== ENCOUNTER 2019-06-16 01:28 | Inpatient (IN) | payer OTHER ==
[2019-06-16 02:07] LABS: BASOPHILS # (AUTO) 0.1 10^3/uL (0.0-0.1); BASOPHILS % (AUTO) 0.6 %; EOSINOPHILS # (AUTO) 0.3 10^3/uL (0.0-0.7); EOSINOPHILS % (AUTO) 3.2 %; HGB - HEMOGLOBIN 12.2 g/dL (12.0-16.0); LYMPHOCYTES % (AUTO) 9.9 %; MEAN CORPUSCULAR HEMOGLOBIN 28.7 pg (27.0-31.0); MEAN CORPUSCULAR HGB CONC 32.9 g/dL (32.0-36.0); MEAN CORPUSCULAR VOLUME 87.3 fL (81.0-99.0); MEAN PLATELET VOLUME 9.9 fL (7.9-10.8); MONOCYTES % (AUTO) 9.6 %; NEUTROPHILS # (AUTO) 7.9 10^3/uL (1.5-6.6); NEUTROPHILS % (AUTO) 76.1 %; PLT - PLATELET COUNT 256 10^3/uL (130-450); RED BLOOD COUNT 4.25 10^6/uL (4.20-5.40); RED CELL DISTRIBUTION WIDTH 13.8 % (12.0-15.0); WHITE BLOOD COUNT 10.3 x10^3/uL (4.8-10.8)
--- NOTE | 2019-06-16 02:09 | ED Physician Documentation ---
PD HPI ABD PAIN - Stated complaint Stated Complaint: R ABD PAIN - Chief complaint Chief Complaint: Abd Pain - History obtained from History obtained from: Patient - History of Present Illness Timing - onset: How many days ago (She started with abdominal pain at least a week ago and was seen in the emergency room 6 days ago and found to have acute cholecystitis. She was in the hospital and had surgery on the which was 5 days ago. She was in the hospital for 2 more days due to infection and pain control. She was discharged 3 days ago with oral pain medication and antiemetics. She states the pain medicines were helping well enough until this past evening when the pain was increased despite the oral medicine. She also use the last of her oral pain medicines last evening. She denies fever or chills. She has had persistent nausea and poor food appetite. She continues with pain in the upper abdomen radiating into her back.) Timing - duration: Days Timing - details: Gradual onset, Still present Quality: Cramping, Aching, Pain Location: RUQ, Epigastric Radiation: Upper back Improved by: Laying still, Meds Worsened by: Eating, Moving. No: Breathing Associated symptoms: Nausea, Loss of appetite. No: Fever, Vomiting, Hematemesis, Diarrhea, Constipation (had small BM since discharge), Dysuria, Hematuria, Near syncope / syncope Recently seen: Emergency Dept, Surgery (5 days ago with persistent pain and nausea since) Review of Systems Constitutional: reports: Myalgias. denies: Fever, Chills Nose: denies: Rhinorrhea / runny nose, Congestion Throat: denies: Sore throat Respiratory: denies: Cough GI: reports: Abdominal Pain, Nausea. denies: Vomiting, Constipation, Diarrhea : denies: Dysuria, Frequency Skin: reports: Other (bruising in abd around scope sites.). denies: Rash, Lesions Musculoskeletal: denies: Neck pain Neurologic: reports: Generalized weakness. 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 HEENT: Other - Present Medications Home Medications: Ambulatory Orders Medication Instructions Recorded Confirmed Acetaminophen [Tylenol] 650 mg PO Q6H PRN tablet 06/13/19 oxyCODONE [Roxicodone] 5 mg PO Q3HR PRN #10 tablet 06/13/19 polyethylene glycoL 3350 [Miralax] 17 gm PO DAILY PRN packet 06/13/19 - Allergies Allergies/Adverse Reactions: Allergies Allergy/AdvReac Type Severity Reaction Status Date / Time No Known Drug Allergies Allergy Verified 06/16/19 01:36 - Social History Does the pt smoke?: No Smoking Status: Never smoker Does the pt drink ETOH?: No Does the pt have substance abuse?: No - Immunizations Immunizations are current?: Yes - POLST Patient has POLST: No PD ED PE NORMAL - Vitals Vital signs reviewed: Yes - General General: Alert and oriented X 3, Well developed/nourished, Other (Appears uncomfortable due to upper abdominal pain. Mild pale color.) - HEENT HEENT: PERRL (slight icteric color noted), Pharynx benign - Neck Neck: Supple, no meningeal sign, No adenopathy - Cardiac Cardiac: RRR, No murmur - Respiratory Respiratory: Clear bilaterally - Abdomen Abdomen: Normal bowel sounds, Soft, Non distended, No organomegaly, Other (Significant bruising on the lower abdomen around the umbilicus. There is some mild bruising in the right upper quadrant abdominal wall as well. No redness warmth or tenderness. The abdominal exam is tender in the right upper quadrant to epigastric area without any percussion or rebound tenderness. Bowel sounds are present but hypoactive.) - Back Back: No CVA TTP - Derm Derm: Normal color, Warm and dry - Extremities Extremities: No tenderness to palpate, Normal ROM s pain, No edema, No calf tenderness / cord - Neuro Neuro: Alert and oriented X 3, No motor deficit, Normal speech Eye Opening: Spontaneous Motor: Obeys Commands Verbal: Oriented GCS Score: 15 Results - Vitals Vitals: Vital Signs - 24 hr 06/16/19 06/16/19 06/16/19 01:33 03:36 04:10 Temperature 36.7 C Heart Rate 77 77 Respiratory 19 14 17 Rate Blood Pressure 140/71 H 139/81 H O2 Saturation 99 90 L Oxygen O2 Source Room air - Labs Labs: Laboratory Tests 06/16/19 06/16/19 01:55 01:55 WBC 10.3 RBC 4.25 Hgb 12.2 Hct 37.1 MCV 87.3 MCH 28.7 MCHC 32.9 RDW 13.8 Plt Count 256 MPV 9.9 Neut # (Auto) 7.9 H Lymph # (Auto) 1.0 L [place] # (Auto) 1.0 Eos # (Auto) 0.3 Baso # (Auto) 0.1 Absolute Nucleated RBC 0.00 Nucleated RBC % 0.0 Sodium 131 L Potassium 3.5 Chloride 95 L Carbon Dioxide 25 Anion Gap 11.0 BUN 9 Creatinine 0.7 Estimated GFR (MDRD) 86 L Glucose 119 H Calcium 8.3 L Total Bilirubin 3.1 H AST 66 H ALT 121 H Alkaline Phosphatase 152 H Total Protein 6.6 L Albumin 3.2 Globulin 3.4 Albumin/Globulin Ratio 0.9 L Lipase 17 L - Rads (name of study) abd CT Radiology: Prelim report reviewed (Some ascites noted in the upper abdomen. This could be consistent with postoperative changes though in the proper setting such as elevated LFTs it could represent a bile leak. No abscess noted. No free air.), See rad report PD MEDICAL DECISION MAKING - ED course Complexity details: re-evaluated patient (The patient is feeling improved with IV fluids and medications for pain and nausea. She is more comfortable at this time. She is given fluids for hydration as well.), considered differential, d/w patient, d/w vendor management consultant (I talked with Dr. Parra who is on-call for surgery and reviewed the findings and exam. She will place the patient in the hospital for further evaluation to distinguish between potential bile leak versus other process.) Departure - Departure Disposition: [address] [facility] DC/Xfer Clinical Impression: Postoperative upper abdominal pain, Elevated LFTs Condition: Stable Record reviewed to determine appropriate education?: Yes
[2019-06-16] MEDS ORDERED: SODIUM CHLORIDE 0.9% 1,000 ML IV ONE ×2 (02:24→04:54)
[2019-06-16] MEDS ORDERED: HYDROmorphone 2 MG/ML VIAL IVP STA (02:24)
[2019-06-16] MEDS ORDERED: KETOROLAC 30 MG/ML VIAL IVP STA (02:24)
[2019-06-16] MEDS ORDERED: ONDANSETRON 4 MG/2 ML VIAL IVP STA (02:26)
[2019-06-16 02:28] LABS: ALBUMIN 3.2 g/dL (3.2-5.5); ALBUMIN/GLOBULIN RATIO 0.9 (1.0-2.2); BILIRUBIN,TOTAL 3.1 mg/dL (0.2-1.0); CALCIUM 8.3 mg/dL (8.5-10.3); CREATININE 0.7 mg/dL (0.4-1.0); TOTAL PROTEIN 6.6 g/dL (6.7-8.2)
[2019-06-16] MEDS ORDERED: IOVERSOL 320 100 ML VIAL IVP ONE ×2 (03:04→03:47)
--- NOTE | 2019-06-16 04:12 | CT Report ---
Reason: increased pain, 5 days post op Procedure Date: 06/16/2019 Accession Number: [id number] / [id number] Procedure: CT - Abdomen/Pelvis W CPT Code: Final Report FULL RESULT: EXAM: CT ABDOMEN AND PELVIS EXAM DATE: 06/16/2019 03:42 AM. CLINICAL HISTORY: Increased pain, 5 days post op. COMPARISONS: None. TECHNIQUE: Routine helical CT imaging was performed through the abdomen and pelvis. IV contrast: OPTI 320 100ML. Enteric contrast: No. Reconstructions: Coronal and sagittal. In accordance with CT protocol optimization, one or more of the following dose reduction techniques were utilized for this exam: automated exposure control, adjustment of mA and/or KV based on patient size, or use of iterative reconstructive technique. FINDINGS: Lung Bases: Unremarkable. Liver: Normal. No masses. Gallbladder/Bile Ducts: Postoperative changes of cholecystectomy. Spleen: Normal. Pancreas: Normal. Adrenal Glands: Normal. Kidneys: Normal. No masses or hydronephrosis. Peritoneal Cavity/Bowel: Small volume of ascites. Tiny amount of free intraperitoneal gas, compatible with recent cholecystectomy. No bowel obstruction or perforation. Colonic diverticulosis, without CT evidence of diverticulitis. The appendix is well visualized and normal. Pelvic Organs: Postoperative changes of hysterectomy. No pelvic adenopathy. Urinary bladder appears unremarkable. Vasculature: No aneurysms or other significant abnormality. Bones: Degenerative changes. Other: Edema in the right abdominal wall, likely postoperative in etiology. IMPRESSION: Postoperative changes of cholecystectomy. Small amount of ascites, likely postoperative in etiology, but if the patient's bilirubin is elevated, consider the possibility of bile leak, which could be further evaluated with HIDA scan. No evidence of bowel obstruction or perforation. Postoperative edema of the right abdominal wall. RADIA
[2019-06-16] MEDS ORDERED: PIPERACILLIN/TAZOBACTAM 3.375 GM in SODIUM CHLORIDE 0.9% MINIBAG 100 ML IV STA (04:54)
[2019-06-16] MEDS ORDERED: HYDROmorphone 1 MG/ML CARPUJECT IVP STA (05:56)
[2019-06-16] MEDS ORDERED: SODIUM CHLORIDE FLUSH 0.9% 10 ML SYRINGE IVP PRN (09:19)
[2019-06-16] MEDS ORDERED: ONDANSETRON 4 MG/2 ML VIAL IVP PRN (09:19)
[2019-06-16] MEDS ORDERED: PANTOPRAZOLE 40 MG VIAL IVP SCH (10:00)
[2019-06-16] MEDS ORDERED: PIPERACILLIN/TAZOBACTAM 3.375 GM in SODIUM CHLORIDE 0.9% MINIBAG 100 ML IV SCH ×2 (10:00→12:00)
[2019-06-16] MEDS ORDERED: DEXTROSE 5%-0.45% NACL 1,000 ML IV SCH (10:00)
[2019-06-16] MEDS: HYDROmorphone 0.5 MG/0.5 ML SYRINGE IVP PRN ×4 (11:16→18:18)
--- NOTE | 2019-06-16 11:57 | Nuclear Medicine Report ---
Reason: Bile leak Procedure Date: 06/16/2019 Accession Number: [id number] / [id number] Procedure: NM - Hepatobiliary HIDA w/o Rx CPT Code: Final Report FULL RESULT: EXAM: HEPATOBILIARY SCAN EXAM DATE: 06/16/2019 11:44 AM. CLINICAL HISTORY: Bile leak. Skin gallbladder surgery 06/11/2019. Small volume free peritoneal fluid possibly bile leak on recent CT. COMPARISON: ABDOMEN/PELVIS W/ 06/16/2019 3:20 AM TECHNIQUE: Following the intravenous administration of 5.0 mCi of Tc99m Mebrofenin, a hepatobiliary scan was done centered on the right upper quadrant region in multiple sequential images and projections. Morphine sulfate given: No. Four-hour delayed images performed: No. FINDINGS: Normal extraction of tracer from the blood pool indicating normal hepatocellular function. The liver size and shape is grossly within normal limits. Appearance of tracer in the biliary tree as early as 0-5 minutes, within normal limits. Bladder not visualized, consistent with reported history of cholecystectomy. Appearance of tracer in the small bowel as early as 5 minutes, within normal limits. There is progressive accumulation of radiotracer at the alecia hepatis, overlying the right hepatic lobe and along the inferior aspect of the right hepatic lobe, and along the right aspect of the abdomen, generally corresponding to fluid seen by CT. IMPRESSION: 1. Findings are consistent with bile leak. 2. Patent common bile duct. RADIA
--- NOTE | 2019-06-16 12:12 | PHARMACY PROGRESS NOTE ---
- Best Possible Medication History Admit Date and Time: 06/16/19918 Processed by: Pharmacy Medication History completed: Yes Patient Interview: Completed Secondary Source(s): Previous admit records As the person ultimately responsible for medication therapy, providers are able to order a medication from an existing home medication list in [facility] via the "Reconcile Routine" prior to Confirmation of that medication by product support rep. Such practice is discouraged except when the physician, in their clinical judgment, deems that a medical need exists for a medication without regard to previous use.
[2019-06-16] MEDS ORDERED: FLU VACC QS2019-20(6MOS UP)/PF 60 MCG/0.5 ML SYRINGE IM ONE (12:30)
--- NOTE | 2019-06-16 14:24 | HISTORY & PHYSICAL EXAMINATION ---
Chief Complaint - Chief Complaint Chief Complaint: Severe abdominal pain following cholecystectomy Abdominal Pain HPI - Admitted From Admitted from: ED - History Obtained From History obtained from: Patient, Family Exam limitations: No limitations - History of Present Illness Severity at the worst: Severe Pain Quality: Sharp Context-Pain started w/: Movement, Rest Timing: Abrupt onset Duration: Days: (3) Improved with: Home medication Worsened by: Movement Associated symptoms: Nausea, General Weakness PMH/PSH - Past Medical History Cardiovascular: positive: None Respiratory: positive: None Neuro: positive: None Endocrine/Autoimmune: positive: None GI: positive: GERD, Cholelithiasis : positive: None HEENT: positive: None Psych: positive: None Musculoskeletal: positive: None Derm: positive: Eczema MRSA Hx?: No - Past Surgical History General: positive: 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: positive: Hysterectomy HEENT: positive: Other Social & Family Hx - Living Situation Living Arrangement: At home - Social History Does the pt smoke?: No Smoking Status: Never smoker Does the pt drink ETOH?: No Does the pt have substance abuse?: No - POLST Patient has POLST: No Meds/Allgy - Home Medications Home Medications: Ambulatory Orders Medication Instructions Recorded Confirmed Acetaminophen [Tylenol] 650 mg PO Q6H PRN tablet 06/13/19 06/16/19 oxyCODONE [Roxicodone] 5 mg PO Q3HR PRN #10 tablet 06/13/19 06/16/19 polyethylene glycoL 3350 [Miralax] 17 gm PO DAILY PRN packet 06/13/19 06/16/19 - Allergies Allergies/Adverse Reactions: Allergies Allergy/AdvReac Type Severity Reaction Status Date / Time No Known Drug Allergies Allergy Verified 06/16/19 01:36 Review of Systems - Constitutional Constitutional: reports: Fatigue, Malaise, Weakness, Poor appetite. denies: Fever, Chills - Eyes Eyes: denies: Pain, Irritation, Amaurosis - Ears, Nose & Throat Ears, Nose & Throat: denies: Ear pain, Hearing loss, Tinnitus, Vertigo - Cardiovascular Cariovascular: denies: Irregular heart rate, Palpitations, Chest pain - Respiratory Respiratory: denies: Cough, Sputum production, Wheezing - Gastrointestinal Gastrointestinal: reports: Abdominal pain, Abdominal distention, Constipation, Nausea - Genitourinary Genitourinary: denies: Dysuria, Frequency - Musculoskeletal Musculoskeletal: reports: Back pain, Stiffness. denies: Muscle pain - Integumentary Integumentary: denies: Rash, Pruritis, Lesions - Neurological Neurological: denies: Focal weakness - All Other Systems All Other Systems: reports: Reviewed and negative Exam - Vital Signs Vital Signs: Vital Signs x48h Temp Pulse Pulse Resp BP BP Pulse Ox 06/16/19 13:25 36.9 C 84 16 129/66 98 06/16/19 12:00 36.7 C 77 16 129/73 95 06/16/19 11:07 36.7 C 78 16 134/63 H 97 06/16/19 07:32 37.0 C 72 15 108/95 H 94 - Physical Exam General Appearance: positive: Alert, Moderate distress Eyes Bilateral: positive: Normal inspection, PERRL, EOMI ENT: positive: ENT inspection nml, No signs of dehydration Neck: positive: Nml inspection, Thyroid nml, No JVD Respiratory: positive: Chest non-tender, No respiratory distress Cardiovascular: positive: Regular rate & rhythm Peripheral Pulses: positive: 1+ Abdomen: positive: Tenderness, Guarding, Rebound, Abnml bowel sounds, Other (Incisions are clean and dry and intact) Skin: positive: Color nml, No rash Extremities: positive: Non-tender, Full ROM, Nml appearance Neurologic/Psychiatric: positive: Oriented x3 Results - Lab Results Fish Bones: 06/16/19 01:55 06/16/19 01:55 Other Lab Results: Lab Results x24hrs 06/16/19 06/16/19 Range/Units 01:55 01:55 WBC 10.3 (4.8-10.8) x10^3/uL RBC 4.25 (4.20-5.40) 10^6/uL Hgb 12.2 (12.0-16.0) g/dL Hct 37.1 (37.0-47.0) % MCV 87.3 (81.0-99.0) fL MCH 28.7 (27.0-31.0) pg MCHC 32.9 (32.0-36.0) g/dL RDW 13.8 (12.0-15.0) % Plt Count 256 (130-450) 10^3/uL MPV 9.9 (7.9-10.8) fL Neut # (Auto) 7.9 H (1.5-6.6) 10^3/uL Lymph # (Auto) 1.0 L (1.5-3.5) 10^3/uL [place] # (Auto) 1.0 (0.0-1.0) 10^3/uL Eos # (Auto) 0.3 (0.0-0.7) 10^3/uL Baso # (Auto) 0.1 (0.0-0.1) 10^3/uL Absolute Nucleated RBC 0.00 x10^3/uL Nucleated RBC % 0.0 /100WBC Sodium 131 L (135-145) mmol/L Potassium 3.5 (3.5-5.0) mmol/L Chloride 95 L (101-111) mmol/L Carbon Dioxide 25 (21-32) mmol/L Anion Gap 11.0 (6-13) BUN 9 (6-20) mg/dL Creatinine 0.7 (0.4-1.0) mg/dL Estimated GFR (MDRD) 86 L (>89) Glucose 119 H (70-100) mg/dL Calcium 8.3 L (8.5-10.3) mg/dL Total Bilirubin 3.1 H (0.2-1.0) mg/dL AST 66 H (10-42) IU/L ALT 121 H (10-60) IU/L Alkaline Phosphatase 152 H (42-121) IU/L Total Protein 6.6 L (6.7-8.2) g/dL Albumin 3.2 (3.2-5.5) g/dL Globulin 3.4 (2.1-4.2) g/dL Albumin/Globulin Ratio 0.9 L (1.0-2.2) Lipase 17 L (22-51) U/L - Diagnostic Imaging Results Diagnostic Imaging Results Comments: Final Report PT NAME: WINTER MARCANO MR#: [id number] REG ER/ED AGE: 58 CI DT/TM: 06/16/19 PCP: : 1960 ATT: SEX: F ORD: Cory Mena MD EXAM: [id number] CT/ABPEW ([id number]) Reason: increased pain, 5 days post op Procedure Date: 06/16/2019 Accession Number: [id number] / [id number] Procedure: CT - Abdomen/Pelvis W CPT Code: Final Report FULL RESULT: EXAM: CT ABDOMEN AND PELVIS EXAM DATE: 06/16/2019 03:42 AM. CLINICAL HISTORY: Increased pain, 5 days post op. COMPARISONS: None. TECHNIQUE: Routine helical CT imaging was performed through the abdomen and pelvis. IV contrast: OPTI 320 100ML. Enteric contrast: No. Reconstructions: Coronal and sagittal. In accordance with CT protocol optimization, one or more of the following dose reduction techniques were utilized for this exam: automated exposure control, adjustment of mA and/or KV based on patient size, or use of iterative reconstructive technique. FINDINGS: Lung Bases: Unremarkable. Liver: Normal. No masses. Gallbladder/Bile Ducts: Postoperative changes of cholecystectomy. Spleen: Normal. Pancreas: Normal. Adrenal Glands: Normal. Kidneys: Normal. No masses or hydronephrosis. Peritoneal Cavity/Bowel: Small volume of ascites. Tiny amount of free intraperitoneal gas, compatible with recent cholecystectomy. No bowel obstruction or perforation. Colonic diverticulosis, without CT evidence of diverticulitis. The appendix is well visualized and normal. Pelvic Organs: Postoperative changes of hysterectomy. No pelvic adenopathy. Urinary bladder appears unremarkable. Vasculature: No aneurysms or other significant abnormality. Bones: Degenerative changes. Other: Edema in the right abdominal wall, likely postoperative in etiology. IMPRESSION: Postoperative changes of cholecystectomy. Small amount of ascites, likely postoperative in etiology, but if the patient's bilirubin is elevated, consider the possibility of bile leak, which could be further evaluated with HIDA scan. No evidence of bowel obstruction or perforation. Postoperative edema of the right abdominal wall. RADIA Mastic Man: Reading Radiologist: Felton Sheikh MD Releasing Radiologist: Felton Sheikh MD Released Date Time: 06/16/19 0403 Impression/Plan - Problem List Problem List: Worrisome for bile leak after difficult cholecystectomy in the setting of acute cholecystitis I will obtain a HIDA scan to evaluate for the above. Plan for transfer to [facility] for ERCP if the study is positive. Start IV Zosyn I have discussed all of the above with the patient and her and they are both in agreement with the plan.
--- NOTE | 2019-06-16 14:33 | Discharge Plan ---
Discharge Plan Problem Reviewed?: Yes Disposition: 02 Transfer Acute Care Hosp Condition: Stable Plan of Treatment: Transfer to [facility] in [place] for ERCP with stent placement and other indicated procedures. I have discussed this with Dr. Mcfarland. He as a greed to perform the procedure tomorrow at 1. No Smoking: If you smoke, Please STOP! Call for help. Follow-up with: Jakob Gauthier MD [Provider Admit Priv/Credential] -
--- NOTE | 2019-06-16 14:41 | DISCHARGE SUMMARY ---
"Discharge Summary Admit Date: 06/16/19 Discharge Date: 06/16/19 Discharging Provider: Flako Code Status: Attempt Resuscitation Condition at Discharge: Stable Discharge Disposition: 02 Transfer Acute Care Hosp Discharge Facility Name: [facility] - DIAGNOSES Admission Diagnoses: Abdominal pain Discharge Diagnoses with Status of Each Condition: Bile leak after cholecystectomy. Transfer for ERCP - HPI History of Present Illness: Jaycee is a pleasant 58 year old lady who was recently discharged from our facility after an admission for acute cholecystitis treated with cholecyst ectomy. She returned to the ED with complaint of severe abdominal pain. CT noted ascites and laboratory evaluation revealed elevated bilirubin. HIDA scan today revealed a bile leak. I have spoken with Dr Mcfarland per telephone and he will perform the ERCP tomorrow if we are able to transfer her to [place]. I have discussed all of this with the patient and her and plan to proceed as soon as there is a bed available. - CONSULTS | PROCEDURES Consultations: None Procedures: None - HOSPITAL COURSE Hospital Course: See above - ALLERGIES Allergies/Adverse Reactions: Allergies Allergy/AdvReac Type Severity Reaction Status Date / Time No Known Drug Allergies Allergy Verified 06/16/19 01:36 - MEDICATIONS Home Medications: Ambulatory Orders Medication Instructions Recorded Confirmed Acetaminophen [Tylenol] 650 mg PO Q6H PRN tablet 06/13/19 06/16/19 oxyCODONE [Roxicodone] 5 mg PO Q3HR PRN #10 tablet 06/13/19 06/16/19 polyethylene glycoL 3350 [Miralax] 17 gm PO DAILY PRN packet 06/13/19 06/16/19 - PHYSICAL EXAM AT DISCHARGE General Appearance: positive: Alert, Mild distress Eyes Bilateral: positive: Normal inspection, PERRL, EOMI Neck: positive: Nml inspection, Thyroid nml, No JVD Respiratory: positive: Chest non-tender, No respiratory distress Cardiovascular: positive: Regular rate & rhythm, No murmur Abdomen: positive: Tenderness, Guarding, Rebound - LABS Result Diagrams: 06/16/19 01:55 06/16/19 01:55 - DIAGNOSTIC IMAGING Diagnostic Imaging Results Comments: Final Report PT NAME: JAYCEE MARCANO MR#: [id number] ADM IN/MS2 AGE: 58 CI DT/TM: 06/16/19 PCP: : 1960 ATT: Hazel Arriola MD SEX: F ORD: Hazel ArmandoOmid Flako BE EXAM: [id number] NM/HIDAWO ([id number]) Reason: Bile leak Procedure Date: 06/16/2019 Accession Number: [id number] / [id number] Procedure: NM - Hepatobiliary HIDA w/o Rx CPT Code: Final Report FULL RESULT: EXAM: HEPATOBILIARY SCAN EXAM DATE: 06/16/2019 11:44 AM. CLINICAL HISTORY: Bile leak. Skin gallbladder surgery 06/11/2019. Small volume free peritoneal fluid possibly bile leak on recent CT. COMPARISON: ABDOMEN/PELVIS W/ 06/16/2019 3:20 AM TECHNIQUE: Following the intravenous administration of 5.0 mCi of Tc99m Mebrofenin, a hepatobiliary scan was done centered on the right upper quadrant region in multiple sequential images and projections. Morphine sulfate given: No. Four-hour delayed images performed: No. FINDINGS: Normal extraction of tracer from the blood pool indicating normal hepatocellular function. The liver size and shape is grossly within normal limits. Appearance of tracer in the biliary tree as early as 0-5 minutes, within normal limits. Bladder not visualized, consistent with reported history of cholecystectomy. Appearance of tracer in the small bowel as early as 5 minutes, within normal limits. There is progressive accumulation of radiotracer at the alecia hepatis, overlying the right hepatic lobe and along the inferior aspect of the right hepatic lobe, and along the right aspect of the abdomen, generally corresponding to fluid seen by CT. IMPRESSION: 1. Findings are consistent with bile leak. 2. Patent common bile duct. RADIA Polisher And Sander: Reading Radiologist: Chapo Mcdaniel MD Releasing Radiologist: Chapo Mcdaniel MD - QUALITY (Female Hip Fx Only) Was patient sent home on osteoporosis medication?: No - FOLLOW UP Follow Up: Follow up with Dr. Gauthier in 1 weeks - TIME SPENT Time Spent in Discharge (Minutes): 25"
[2019-06-16] MEDS ORDERED: SODIUM CHLORIDE FLUSH 0.9% 10 ML SYRINGE IVP SCH (17:00)
[2019-06-16 17:45] VITALS: BP 126/84
[2019-06-17] MEDS ORDERED: ENOXAPARIN 40 MG/0.4 ML SYRINGE SUBQ SCH (09:00)
== END 2019-06-16 18:30 | disposition short-term general hospital (02) | DRG 395 ==
LOC: EDUNIT# → ED 01:28 → MS2 09:19
PROVIDERS: ADMIT Surgery; ATTEND Surgery
DX: K91.89 Other postprocedural complications and disorders of digestive system (principal); Y83.6 Removal of other organ (partial) (total) as the cause of abnormal reaction of the patient, or of later complication, without mention of misadventure at the time of the procedure; Y92.234 Operating room of hospital as the place of occurrence of the external cause; K21.9 Gastro-esophageal reflux disease without esophagitis
CPT/HCPCS: 36415; 74177; 78226; 80053; 83690; 85025; 90686; 96361; 96365; 96375; 99285; J1170; Q9967